=== PATIENT | female | born 1950 | race Caucasian/White ===

== ENCOUNTER 2018-01-28 07:00 | Emergency (ER) | END 2018-01-28 08:12 | disposition home or self-care (01) ==

== ENCOUNTER 2018-01-31 19:09 | Emergency (ER) | END 2018-01-31 21:42 | disposition left against medical advice (07) ==

== ENCOUNTER 2018-02-01 13:56 | Emergency (ER) | END 2018-02-01 16:51 | disposition home or self-care (01) ==

== ENCOUNTER 2018-02-09 07:33 | Emergency (ER) | END 2018-02-09 08:39 | disposition home or self-care (01) ==